=== PATIENT | female | born 1995 | race Caucasian/White ===

== ENCOUNTER 2017-07-26 15:10 | Emergency (ER) | payer SELFPAY ==
--- NOTE | 2017-07-26 15:21 | ED.PDOC ---
History of Present Illness - General Chief Complaint: Abdominal Pain Stated Complaint: abdominal pain Time Seen by Provider: 07/26/17 15:21 Source: patient Exam Limitations: no limitations - History of Present Illness Initial Comments: Ayala Bonilla 21 y/o female came to [facility] with multiple episodes of nausea/ vomiting,diarrhea early this am about 0230h.Ate hot dog last night before getting sick and this am had ramen noodles but threw it up.Also had generalized abdominal cramps which lingered since started getting sick last night.No ill contact,no fever/chills ,no blood in stool. Timing/Duration: this morning - see hpi Quality: cramping Onset Location: other - generalized Radiation: none Activites at Onset: other - see hpi Sexual intercourse history: not active Improving Factors: nothing Worsening Factors: eating Associated Symptoms: other - see hpi Allergies/Adverse Reactions: Allergies NO KNOWN ALLERGY Allergy (Verified 07/26/17 15:28) Home Medications: Ambulatory Orders Promethazine Tab [Phenergan Tablet] 25 mg PO .Q4H PRN #14 tab 07/26/17 Review of Systems - Review of Systems Constitutional: States: no symptoms reported EENTM: States: no symptoms reported Respiratory: States: no symptoms reported Cardiology: States: no symptoms reported Gastrointestinal/Abdominal: States: see HPI Musculoskeletal: States: no symptoms reported Skin: States: no symptoms reported All other Systems: Reviewed and Negative, No Change from Baseline Past Medical History (General) - Patient Medical History Hx Seizures: No Hx Asthma: No Surgical History: cholecystectomy, tonsillectomy - Social History Hx Tobacco Use: No Hx Alcohol Use: No Hx Physical Abuse: No Hx Emotional Abuse: No - Activities of Daily Living Patient Lives Alone: No - Female History Patient is a Female of Child Bearing Age (10 -59 yrs old): Yes Hx Last Menstrual Period: 07/18/17 Patient : No Family Medical History - Family History Mother Living Status: Still Living Hx Family Hypertension: Yes - parents Hx Family Diabetes: Yes - parents Physical Exam - Physical Exam General Appearance: Alert, Comfortable, No apparent distress Eyes, Ears, Nose, Throat Exam: normal ENT inspection Neck: non-tender, full range of motion, supple Cardiovascular/Respiratory: regular rate, rhythm, no M/R/G, normal peripheral pulses, normal breath sounds Gastrointestinal/Abdominal: soft, tenderness - all over no peritoneal signs Back Exam: normal inspection, no CVA tenderness Extremity: non-tender, normal inspection, no calf tenderness Neurologic: alert, oriented x 3 Skin Exam: normal color, warm/dry Lymphatic: no adenopathy Progress - Progress Progress: 07/26/17 18:21 Vital Signs - 8 hr 07/26/17 07/26/17 07/26/17 15:22 16:19 17:19 Temperature 98.6 F Pulse Rate [ 100 H 96 H 88 Left Radial] Respiratory 22 22 22 Rate Blood Pressure 144/87 133/83 135/88 [Left Arm] O2 Sat by Pulse 96 95 96 Oximetry - Results/Orders Results/Orders: 07/26/17 15:36 IV Care:Saline Lock per Protoc QSHIFT Laboratory Results - last 24 hr 07/26/17 07/26/17 07/26/17 15:35 15:40 15:40 WBC 7.8 RBC 4.53 Hgb 13.2 Hct 38.7 MCV 85.6 MCH 29.2 MCHC 34.2 RDW 13.0 Plt Count 320 MPV 7.7 Absolute Neuts (auto) 5.10 Absolute Lymphs (auto) 2.00 Absolute Monos (auto) 0.60 Absolute Eos (auto) 0.10 Absolute Basos (auto) 0.10 Neutrophils % 65.1 Lymphocytes % 25.1 Monocytes % 7.5 Eosinophils % 1.3 Basophils % 1.0 Sodium 137 Potassium 3.5 L Chloride 104 Carbon Dioxide 23 Anion Gap 13.5 BUN 9 Creatinine 0.63 BUN/Creatinine Ratio 14.3 Random Glucose 108 H Serum Osmolality 273.0 L Calcium 9.0 Total Bilirubin 1.1 H AST 40 ALT 69 H Alkaline Phosphatase 75 Serum Total Protein 7.4 Albumin 4.0 Globulin 3.4 Albumin/Globulin Ratio 1.2 Lipase 23 Urine Color Urine Appearance Urine pH Ur Specific [place] Urine Protein Urine Glucose (UA) Urine Ketones Urine Blood Urine Nitrite Urine Bilirubin Urine Urobilinogen Ur Leukocyte Esterase Urine RBC Urine WBC Ur Epithelial Cells Amorphous Sediment Urine Bacteria Urine Mucus Urine HCG, Qual Urine Opiates Screen Negative Urine Barbiturates Negative Ur Phencyclidine Scrn Negative U Amphetamin/Meth Scrn Negative U Benzodiazepines Scrn Negative U Cocaine Metab Screen Negative U Cannabinoids Screen Negative 07/26/17 07/26/17 15:40 15:40 WBC RBC Hgb Hct MCV MCH MCHC RDW Plt Count MPV Absolute Neuts (auto) Absolute Lymphs (auto) Absolute Monos (auto) Absolute Eos (auto) Absolute Basos (auto) Neutrophils % Lymphocytes % Monocytes % Eosinophils % Basophils % Sodium Potassium Chloride Carbon Dioxide Anion Gap BUN Creatinine BUN/Creatinine Ratio Random Glucose Serum Osmolality Calcium Total Bilirubin AST ALT Alkaline Phosphatase Serum Total Protein Albumin Globulin Albumin/Globulin Ratio Lipase Urine Color Yellow Urine Appearance Sl cloudy Urine pH 6.0 Ur Specific [place] 1.015 Urine Protein Negative Urine Glucose (UA) Negative Urine Ketones 15 H Urine Blood Negative Urine Nitrite Negative Urine Bilirubin Negative Urine Urobilinogen 0.2 Ur Leukocyte Esterase Trace H Urine RBC 0 Urine WBC 0-1 Ur Epithelial Cells 3-5 Amorphous Sediment 2+ Urine Bacteria 1+ Urine Mucus Small Urine HCG, Qual Negative Urine Opiates Screen Urine Barbiturates Ur Phencyclidine Scrn U Amphetamin/Meth Scrn U Benzodiazepines Scrn U Cocaine Metab Screen U Cannabinoids Screen Departure - Departure Clinical Impression: Vomiting and diarrhea, Abdominal cramps Time of Disposition: 18:22 Disposition: Discharge to Home or Self Care Departure Forms: ED Discharge - Pt. Copy, Patient Portal Self Enrollment Instructions: Gastroenteritis Diet Diet: other - AVOID GREASY SPICY and DAIRY FOODS UNTIL BETTER;NO RAMEN OR CHICKEN NOODLE SOUP UNTIL BETTER,May have chicken broth Prescriptions: Promethazine Tab [Phenergan Tablet] 25 mg PO .Q4H PRN #14 tab PRN Reason: Nausea Home Medications: Ambulatory Orders Promethazine Tab [Phenergan Tablet] 25 mg PO .Q4H PRN #14 tab 07/26/17
[2017-07-26 15:28] VITALS: TEMP 98.6
[2017-07-26] MEDS ORDERED: LACTATED RINGERS 1,000 ML IVS ONE (15:36)
[2017-07-26] MEDS ORDERED: PROMETHAZINE HCL INJ 25 MG/ML VIAL IM ONE (15:36)
[2017-07-26] MEDS ORDERED: MORPHINE SULFATE INJ 10 MG/ML VIAL IV ONE (15:36)
[2017-07-26] MEDS ORDERED: DEXAMETHASONE INJ 4 MG/ML VIAL IV ONE (17:24)
[2017-07-26] MEDS ORDERED: KETOROLAC TROMETHAMINE INJ 30 MG/ML VIAL IV ONE (17:24)
[2017-07-26] MEDS ORDERED: ONDANSETRON ODT (ER DISP) 8 MG TAB PO ONE (18:24)
[2017-07-26] MEDS ORDERED: PROMETHAZINE TAB (ER DISP) 25 MG TAB PO ONE (18:24)
[2017-07-26 18:48] VITALS: BP 125/79; O2SAT 95
== END 2017-07-26 18:59 | disposition home or self-care (01) ==
LOC: ER 15:10
DX: R11.2 Nausea with vomiting, unspecified (principal); R19.7 Diarrhea, unspecified; R10.9 Unspecified abdominal pain
CPT/HCPCS: 36415; 80053; 80307; 81001; 81025; 83690; 85025; J1100; J1885; J2270; J2550; J7120; Q0169

== ENCOUNTER 2017-08-17 11:34 | Emergency (ER) | payer SELFPAY ==
[2017-08-17 11:46] VITALS: TEMP 98
--- NOTE | 2017-08-17 12:16 | RAD ---
EXAM DESCRIPTION: Ankle,Right 3 Views CLINICAL HISTORY: pain COMPARISON: None. IMPRESSION: 3 views of the right ankle shows no evidence of acute fracture, focal bone destruction, or joint dislocation. Small enthesophyte at the Achilles tendon attachment to the calcaneus is seen. Ankle mortise appears maintained. Soft tissues are unremarkable. Electronically signed by: Luis Galindo MD 08/17/2017 12:15 PM CDT
--- NOTE | 2017-08-17 12:41 | ED.PDOC ---
History of Present Illness - General Chief Complaint: Lower Extremity Injury Stated Complaint: right ankle pain Time Seen by Provider: 08/17/17 12:38 Source: patient Exam Limitations: no limitations - History of Present Illness Initial Comments: PT REPORTS TWISTING INJURY TO THE RIGHT ANKLE YESTERDAY WHILE WALKING UP STAIRS. PT REPORTS SHE IS NOT ABLE TO FULLY BEAR WEIGHT ON THE AFFECTED LIMB. Occurred: yesterday Pain - Lower Extremity: moderate: Right Ankle Method of Injury: twisted Improving Factors: immobilization Worsening Factors: movement Allergies/Adverse Reactions: Allergies NO KNOWN ALLERGY Allergy (Verified 07/26/17 15:28) Home Medications: Ambulatory Orders Ibuprofen 800 mg PO Q8HR PRN #30 tab 08/17/17 Review of Systems - Review of Systems Constitutional: Denies: chills, fever EENTM: Denies: nose congestion, throat pain Respiratory: Denies: cough, short of breath Cardiology: Denies: chest pain, palpitations, syncope Musculoskeletal: States: see HPI, joint pain. Denies: joint swelling Past Medical History (General) - Patient Medical History Hx Seizures: No Hx Stroke: No Hx Asthma: No Hx Congestive Heart Failure: No Hx Diabetes: No Surgical History: cholecystectomy, tonsillectomy - Vaccination History Hx Influenza Vaccination: No Hx Pneumococcal Vaccination: No - Social History Hx Tobacco Use: No Hx Alcohol Use: No Hx Physical Abuse: No Hx Emotional Abuse: No - Female History Patient is a Female of Child Bearing Age (10 -59 yrs old): Yes Hx Last Menstrual Period: 07/18/17 Patient : No Family Medical History - Family History Mother Living Status: Still Living Hx Family Hypertension: Yes - parents Hx Family Diabetes: Yes - parents Physical Exam - Physical Exam General Appearance: Alert, Comfortable, Obese, Well Developed, Well Groomed, Well Hydrated Eyes, Ears, Nose, Throat: normal ENT inspection Neck: normal inspection Cardiovascular/Respiratory: no respiratory distress Thigh/Hip: normal inspection, non-tender, no evidence of injury Leg: normal inspection, non-tender, no evidence of injury Knee: normal inspection, non-tender, no evidence of injury Ankle: normal inspection, no evidence of injury, bone tenderness, soft tissue tenderness Foot: normal inspection, non-tender, no evidence of injury Neuro/Tendon: normal sensation, normal motor functions, normal tendon functions Mental Status: alert, oriented x 3 Skin: normal color, warm/dry Progress - EKG/XRAY/CT XRAY: ankle - NO FRACTURE OR DISLOCATION, PER RAD Departure - Departure Clinical Impression: Sprain of right ankle or foot Time of Disposition: 12:41 Disposition: Discharge to Home or Self Care Condition: Good Departure Forms: ED Discharge - Pt. Copy, Patient Portal Self Enrollment Instructions: DI for Ankle Sprain Diet: resume usual diet Activity: increase activity as tolerated Referrals: [facility] [Provider Group] - 1-2 Weeks Prescriptions: Ibuprofen 800 mg PO Q8HR PRN #30 tab PRN Reason: Pain Home Medications: Ambulatory Orders Ibuprofen 800 mg PO Q8HR PRN #30 tab 08/17/17
[2017-08-17] MEDS ORDERED: IBUPROFEN 200 MG TAB PO ONE (12:43)
[2017-08-17 13:07] VITALS: BP 139/96; O2SAT 100
== END 2017-08-17 13:18 | disposition home or self-care (01) ==
LOC: ER 11:34
DX: S93.401A Sprain of unspecified ligament of right ankle, initial encounter (principal); X50.1XXA Overexertion from prolonged static or awkward postures, initial encounter; Y92.9 Unspecified place or not applicable